=== PATIENT | male | born 1960 | race Caucasian/White ===

== ENCOUNTER 2017-05-16 08:28 | Outpatient (CLI) | payer MEDICAID | END 2017-05-16 08:29 | disposition critical access hospital (66) | LOC: EMS 08:28 | PROVIDERS: ATTEND Surgery | DX: I46.9 Cardiac arrest, cause unspecified (principal) | CPT/HCPCS: A0425; A0433 ==

== ENCOUNTER 2017-05-16 08:45 | Emergency (ER) | payer MEDICAID ==
[2017-05-16 08:55] VITALS: BP 144/82
--- NOTE | 2017-05-16 09:13 | ED Physician Documentation ---
History of Present Illness - Stated complaint Stated Complaint: CPR - Chief complaint Chief Complaint: Cardiac - Additonal information Additional information: This patient is a 57-year-old male who apparently lives in the area locally. Ambulance was called out to his home today. The history is obtained mostly from the ambulance during the time the patient was brought in for evaluation. Ambulance reports that the patient did complain of having one defibrillator discharge yesterday. It is unclear at this time exactly what the complaint was today for the ambulance being called to his home. He mentioned that they found the patient in a tachycardic rhythm and in mild distress. The EMS crew says his heart rates are in the 160s-170s and at the complex appeared narrow. He was administered a dose of adenosine and initially improved but then developed problems later including a brief episode of asystole. At some point the patient was intubated and CPR was commenced along with multipleDoses of epinephrine, 5 in total. The ambulance reports that from the onset of loss of circulation to the present is been over an hour. The last dose of epinephrine was a few minutes before he reached the emergency department. He also mentioned he was given 2 g of magnesium intravenously. Review of systems: A complete review of systems cannot be obtained due to patient's clinical condition PD PAST MEDICAL HISTORY - Past Medical History Cardiovascular: Hypertension, High cholesterol, Coronary artery disease, Peripheral Vascular Disease, VA Respiratory: None Neuro: CVA, Tremors Endocrine/Autoimmune: None GI: GI bleed, Ulcers Psych: None Musculoskeletal: Fatigue - Past Surgical History Past Surgical History: Yes General: Cholecystectomy Cardiovascular: CABG, Coronary stent, Fempop bypass - Present Medications Home Medications: Ambulatory Orders Medication Instructions Recorded Confirmed Atorvastatin Calcium [Lipitor] 40 mg PO HS 07/10/13 08/12/16 Carvedilol 25 mg PO BID 07/10/13 08/13/16 Clopidogrel [Plavix] 75 mg PO DAILY 07/10/13 08/12/16 Lisinopril 20 mg PO DAILY 07/10/13 08/13/16 Multivitamin [Multivitamins] 1 each PO DAILY 07/10/13 08/13/16 Meloxicam 7.5 mg PO BID 08/13/16 08/13/16 - Allergies Allergies/Adverse Reactions: Allergies Allergy/AdvReac Type Severity Reaction Status Date / Time No Known Drug Allergies Allergy Verified 08/12/16 17:11 - Social History Does the pt smoke?: Yes Smoking Status: Current some day smoker Does the pt drink ETOH?: Yes Does the pt have substance abuse?: No PD ED PE EXPANDED - General General: In distress, Lethargic, Unresponsive - HEENT HEENT: Other (Edentulous, pupils 4 mm of movement) - Cardiac Cardiac: Jay. No: Regularly irregular, Murmur Present, S3, S4, Normal pulses , Radial strong equal, Femoral strong equal, Pedal strong equal, Cap refill < 2 sec, Prolonged cap refill - Respiratory Respiratory: Other (Good air movement with bag mask ventilations, no obvious rhonchi or wheezes) - Abdomen Abdomen: Other (Normal-appearing flat abdomen) - Derm Derm: Diaphoretic, Cyanotic - Extremities Extremities: Other ([place] extremities bilaterally) - GCS Eye Opening: None Motor: None Verbal: None Total: 3 Results - Vitals Vitals: Vital Signs - 24 hr 05/16/17 08:42 Heart Rate 40 L Blood Pressure 144/82 H Oxygen O2 Source [With Activity] Room air O2 Source Room air PD MEDICAL DECISION MAKING - ED course ED course: This patient is a 57-year-old man who appears much older than his stated age. Looking through his medical history he has a history of alcohol abuse although the current status of this is unknown at this time he also has a history of coronary disease status post bypass hypertension dyslipidemia and on physical exam it appears that he has had a bilateral aorto-M bypass.Patient did tell EMS that he had a defibrillator discharge yesterday and while it is unclear the exact reason are called out today they responded find this patient to distress and tachycardic. They found a narrow complex tachycardia and gave the patient a dose of adenosine and soon thereafter the patient crashed. He came bradycardic and then went into asystole. CPR was initiated including rapid sequence intubation chest compressions and ACLS medications. 5 mg of epinephrine were given as well as 2 g of magnesium. The patient failed To have return of spontaneous circulation. The patient was brought into the resuscitation bay here he had a bradycardic heart rate in the 40s on the monitor. Quick check with ultrasound for pulses at the carotid were performed without any obvious ultrasound pulse. Next cardiac view showed absolutely no cardiac activity. There is complete standstill of the patient's heart without even a twitch of myocardial movement. At this time this patient has been down for well over an hour he technically is in PE at this time with no cardiac motion whatsoever. At this time there is no chance of any meaningful recovery and so the resuscitation was halted.Approximate time of was 847. I have attempted to call the patient's brother isaac Chaves I left a message. Disposition: Clinical impression: 1. Cardiac arrest 2. Pulseless electrical activity with prolonged resuscitation Departure - Departure Disposition: 20
== END 2017-05-16 10:55 | disposition expired ==
LOC: EDUNIT# → ED 08:45
DX: I46.9 Cardiac arrest, cause unspecified (principal); I10 Essential (primary) hypertension; I25.10 Atherosclerotic heart disease of native coronary artery without angina pectoris; I25.2 Old myocardial infarction; F17.200 Nicotine dependence, unspecified, uncomplicated; Z86.73 Personal history of transient ischemic attack (TIA), and cerebral infarction without residual deficits; I73.9 Peripheral vascular disease, unspecified; Z95.5 Presence of coronary angioplasty implant and graft; Z95.1 Presence of aortocoronary bypass graft
CPT/HCPCS: 99282